=== PATIENT | female | born 1940 | race Caucasian/White ===

== ENCOUNTER 2019-03-13 10:14 | Emergency (ER) | payer OTHER, BC ==
[2019-03-13 10:23] VITALS: BP 119/48; PULSE 67; TEMP 98.3; BMI 21.9
--- NOTE | 2019-03-13 11:02 | PDOC ---
History of Present Illness - General Chief Complaint: Pain Stated Complaint: RT WRIST INJURY Time Seen by Provider: 03/13/19 11:01 History Source: Patient Exam Limitations: No Limitations - History of Present Illness Initial Comments: 03/13/19 13:39 HPI: 78-year-old female who apparently had fallen outside yesterday and landed on her left hand and wrist to break her fall. There is no skin or abrasion noted. There is no redness or erythema. There is some minor swelling around the wrist but there is flexion and extension. Chief Compliant: Left wrist pain Pain location: Left wrist Duration: Modifying factors: Quality: Radiating: Severity: Time: Home med use noted on AUG Allergies: NKA Past History - Past Medical History Allergies/Adverse Reactions: Allergies Allergy/AdvReac Type Severity Reaction Status Date / Time No Known Allergies Allergy Verified 03/13/19 10:21 Cardiac Disorders: Yes (palpitations) COPD: No Other medical history: sensitive vagal nerve - Psycho Social/Smoking Cessation Hx Smoking History: Never smoked Review of Systems - Review of Systems Able to Perform ROS?: Yes Comments:: 03/13/19 13:40 General statement: Left wrist pain since yesterday at 5 Hematology: neg history of bleeding/blood thinners Skin: Neg for lesions, rash, bruising. HEENT: Neg symptoms Respiratory: Neg SOB or difficulty in breathing Cardiac: Neg chest pain GI: Neg pain, n/v : Neg problems on voiding MS: Neg for joint pain/stiffness, no edema with the exception of the left wrist pain Neuro: Neg for LOC, weakness, Endocrine: Neg for excess thirst/hunger, cold/heat intolerance, excess sweating Allergies: Neg for allergies *Physical Exam - Vital Signs Last Vital Signs Temp Pulse Resp BP Pulse Ox 98.3 F 67 18 119/48 L 100 03/13/19 10:18 03/13/19 10:18 03/13/19 10:18 03/13/19 10:18 03/13/19 10:18 - Physical Exam Comments: 03/13/19 13:40 General Appearance: This well appearing 78-year-old female V/S: hemodynamically stable, afebrile Skin: WNL of pt's skin color, no signs of pallor, mottling, cyanosis Head:symmetrical Eyes: EOM's intact, PERRLA Ears: denies pain Nose: patent Throat: lips, teeth, gums, tongue, buccal mucos pink and moist Lungs: Chest symmetry equal. Cap refill <3 seconds. Lung sounds clear Cardiac: PMI at R 4MCL space, pos S1 and S2, regular rate. Abdomen: Soft, round, nontender : Not observed Muscularskeletal: Gait steady, ambulated in to ER, no edema +PMS left wrist pain; Neuro: AAOx3, cognitively intact, speech clear and appropriate. Medical Decision Making - Medical Decision Making 03/13/19 13:42 Patient was seen and examined patient's left wrist was x-rayed and negative for any fracture. Patient does have flexion extension she does have more pain on flexion. This time I would like a [id number] splint however we did not have one year and we are Mark wrapping it for now until you are to use ice and some Tylenol. She will follow-up with her primary in a week. Discharge - Discharge Information Problems reviewed: Yes Clinical Impression/Diagnosis: Injuries Left wrist sprain Qualifiers: Encounter type: initial encounter Qualified Code(s): S63.502A - Unspecified sprain of left wrist, initial encounter Condition: Good Disposition: HOME - Admission No - Follow up/Referral - Patient Discharge Instructions Patient Printed Discharge Instructions: DI for Wrist Sprain Additional Instructions: Discharge instructions -ice -rest, no sports for now -splint for comfort -motrin/tylenol -follow up with doctor if pain continues - Post Discharge Activity
== END 2019-03-13 11:20 | disposition home or self-care (01) ==
LOC: JERFT 10:14
DX: S63.502A Unspecified sprain of left wrist, initial encounter (principal); W18.39XA Other fall on same level, initial encounter; Y93.89 Activity, other specified; Y92.89 Other specified places as the place of occurrence of the external cause; Y99.8 Other external cause status
CPT/HCPCS: 73110-TC-LT-FY; 99281-25

== ENCOUNTER 2019-03-18 14:29 | Emergency (ER) | payer OTHER, BC ==
--- NOTE | 2019-03-18 14:41 | PDOC ---
Rapid Medical Evaluation Time Seen by Provider: 03/18/19 14:36 Medical Evaluation: Allergies Allergy/AdvReac Type Severity Reaction Status Date / Time No Known Allergies Allergy Verified 03/13/19 10:21 03/18/19 14:39 Pt c/o: fell last week onto left side, injured left wrist, now with pain to left ribs, pain w/ movement and deep breathing, took motrin yesterday with good effect Pt on brief exam: tender over mid axillary line 3-7th ribs, no rash, small ecchymotic area near left axilla Pt ordered for: left rib series Pt to proceed to the ED Discharge Disposition - Diagnosis Rib pain on left side - Referrals - Patient Instructions - Post Discharge Activity
[2019-03-18 14:44] VITALS: BP 144/71; PULSE 67; TEMP 97.8; BMI 21.9
[2019-03-18] MEDS ORDERED: ACETAMINOPHEN 325 MG TABLET (FP) PO ONE (15:15)
[2019-03-18] MEDS ORDERED: LIDOCAINE 5% TOPICAL PATCH TP ONE (15:15)
[2019-03-18] MEDS ORDERED: ACETAMINOPHEN 325 MG TABLET (FP) ONE (15:17)
[2019-03-18] MEDS ORDERED: LIDOCAINE 5% TOPICAL PATCH ONE (15:17)
--- NOTE | 2019-03-18 15:24 | PDOC ---
History of Present Illness - General Chief Complaint: Pain, Acute Stated Complaint: left sided pain Time Seen by Provider: 03/18/19 14:36 History Source: Patient Exam Limitations: No Limitations Past History - Past Medical History Allergies/Adverse Reactions: Allergies Allergy/AdvReac Type Severity Reaction Status Date / Time No Known Allergies Allergy Verified 03/18/19 14:44 Home Medications: Ambulatory Orders Lidocaine 5% Patch [Lidoderm -] 1 patch TP DAILY #7 patch 03/18/19 Cardiac Disorders: Yes (palpitations) COPD: No - Psycho Social/Smoking Cessation Hx Smoking History: Unknown if ever smoked Have you smoked in the past 12 months: No Information on smoking cessation initiated: No Hx Alcohol Use: No Drug/Substance Use Hx: No *Physical Exam - Vital Signs Last Vital Signs Temp Pulse Resp BP Pulse Ox 97.8 F 67 16 144/71 100 03/18/19 14:41 03/18/19 14:41 03/18/19 14:41 03/18/19 14:41 03/18/19 14:41 - Physical Exam General Appearance: No: Apparent Distress Respiratory/Chest: positive: Chest Tender (+TTP along L anterior axillary line 5th-6th rib, no ecchymosis, no palpable step-off), Normal Breath Sounds. negative: Respiratory Distress, Decreased Breath Sounds, Rhonchi, Stridor, Wheezing Cardiovascular: positive: Regular Rhythm, Regular Rate, S1, S2. negative: Murmur Neurologic: positive: Alert, Normal Mood/Affect ED Treatment Course - Medications Given in the ED: ED Medications Discontinued Medications Generic Name Dose Route Start Last Admin Trade Name Freq PRN Reason Stop Dose Admin Acetaminophen 975 mg 03/18/19 15:15 03/18/19 15:18 Tylenol - PO 03/18/19 15:16 975 mg ONCE ONE Administration Lidocaine 1 patch 03/18/19 15:15 03/18/19 15:18 Lidoderm Patch - TP 03/18/19 15:16 1 patch ONCE ONE Administration Medical Decision Making - Medical Decision Making 78 y/o F hx of palpitations (unclear cause) presents with L sided rib pain s/p mechanical fall last week. Patient states she tripped over curb in the dark last week, falling forward. She was seen in the ED few days ago for L wrist pain for which xray was done and came back negative; her L wrist was placed in splint. However, mentions noting 2 days ago, that her L side of ribs were hurting, which she hadn't noticed before. Pain is worse with inspiration. Denies fever, cough, abd pain, vomiting, headache, neck pain. Rib series ordered from triage - no obvious rib fracture Plan: CT chest to r/o rib fracture, Tylenol and lido patch for pain 03/18/19 15:21 CT scan shows no evidence of deep rib fracture. There is mild irregular pleural thickening noted. No evidence of pericardial effusion, pneumothorax, infiltrate, pulmonary contusion or pleural fluid noted Likely slight bruise after fall Patient given copy of CT scan results Patient stable for discharge 03/18/19 17:18 Discharge - Discharge Information Problems reviewed: Yes Clinical Impression/Diagnosis: Rib pain on left side Condition: Stable Disposition: HOME - Admission No - Additional Discharge Information Prescriptions: Lidocaine 5% Patch [Lidoderm -] 1 patch TP DAILY #7 patch Prescription Drug Monitoring Program (I-STOP) results: I-STOP not reviewed - Follow up/Referral - Patient Discharge Instructions Patient Printed Discharge Instructions: DI for Rib Contusion Additional Instructions: Thank you for choosing [facility]. It was a pleasure taking care of you. There is no evidence of fracture on your CT scan You may take Tylenol as needed for pain You may also apply lidocaine patch over site for 12 hours for pain You may also apply cold compresses alongside injury Please follow-up with your doctor in 3 days Return to the Emergency Department if your symptoms worsen or persist, you have fever, shortness of breath, chest pain or other concerning symptoms. - Post Discharge Activity
== END 2019-03-18 17:29 | disposition home or self-care (01) ==
LOC: JERFT 14:29
DX: R07.81 Pleurodynia (principal); W10.1XXA Fall (on)(from) sidewalk curb, initial encounter; Y93.89 Activity, other specified; Y92.480 Sidewalk as the place of occurrence of the external cause; Y99.8 Other external cause status; Z86.79 Personal history of other diseases of the circulatory system
CPT/HCPCS: 71101-TC-LT-FY; 71250-TC; 99282-25